=== PATIENT | male | born 1955 | race Caucasian/White ===

== ENCOUNTER 2018-12-04 12:08 | Emergency (ER) | payer OTHER ==
[2018-12-04 12:36] VITALS: PULSE 55; RESP 18
[2018-12-04] MEDS ORDERED: Acetaminophen-Codeine 300-30mg TAB PO STA (13:01)
[2018-12-04] MEDS ORDERED: LIDOCAINE 5% PATCH TOPICAL STA (13:01)
[2018-12-04] MEDS ORDERED: DIAZEPAM 5 MG/ML 2 ML INJ IM STA (13:02)
--- NOTE | 2018-12-04 13:16 | ED ---
Back Pain HPI - General Chief Complaint: Back Pain/Injury Stated Complaint: L5-S1 back pain Time Seen by Provider: 12/04/18 12:38 Source: patient Limitations: no limitations - History of Present Illness Initial Comments: Patient is a 62-year-old male with history of chronic low back pain is presenting to emergency Department with a chief complaint of back pain. Patient reports his initial symptoms started about 25 years ago after an injury. Patient reports a sense he experiences multiple acute exacerbations of the back pain per year. Patient reports his back "goes out" and he develops a localized pain in the lumbar sacral region. Patient reports the pain is exacerbated with ambulation alleviated when laying supine. Patient reports previous MRIs which determined a herniated disc at L5 and S1. Patient denies taking any pain medication at home. Patient denies numbness and tingling radiating down lower extremities. Patient denies any saddle paresthesia, urinary or bowel incontinence. Patient denies any abdominal pain. - Related Data Home Medications Medication Instructions Recorded Confirmed Ergocalciferol [Vitamin D2] 50,000 unit PO RACHEL 12/04/18 12/04/18 [employer]-3 Fatty Acids/Fish Oil [Fish 1 cap PO DAILY 12/04/18 12/04/18 Oil 1,000 mg Softgel] clonazePAM [KlonoPIN] 2 mg PO TID 12/04/18 12/04/18 Previous Rx's Medication Instructions Recorded Cyclobenzaprine [Flexeril] 5 mg PO TID PRN #15 tablet 12/04/18 Lidocaine [Lidoderm 5% Patch] 1 patch TRANSDERM DAILY #7 patch 12/04/18 Allergies Allergy/AdvReac Type Severity Reaction Status Date / Time Penicillins Allergy Unknown Verified 12/04/18 12:51 Iodine and Iodide Containing AdvReac KIDNEY Verified 12/04/18 12:51 Produc ISSUES Review of Systems ROS Statement: Those systems with pertinent positive or pertinent negative responses have been documented in the HPI. ROS Other: All systems not noted in ROS Statement are negative. Past Medical History Past Medical History: Prostate Disorder Additional Past Medical History / Comment(s): chronic back pain, diverticulitis, sepsis History of Any Multi-Drug Resistant Organisms: None Reported Past Surgical History: Appendectomy Additional Past Surgical History / Comment(s): colostomy and reversal, stage 3 Kidney disease, anemia Past Psychological History: Panic Disorder Smoking Status: Former smoker Past Alcohol Use History: None Reported Past Drug Use History: Marijuana General Exam Limitations: no limitations General appearance: alert, in no apparent distress Head exam: Present: atraumatic, normocephalic, normal inspection Eye exam: Present: normal appearance, PERRL, EOMI Pupils: Present: normal accommodation ENT exam: Present: normal exam, normal oropharynx, mucous membranes moist, TM's normal bilaterally, normal external ear exam Neck exam: Present: normal inspection, full ROM Respiratory exam: Present: normal lung sounds bilaterally Cardiovascular Exam: Present: regular rate, normal rhythm, normal heart sounds GI/Abdominal exam: Present: soft, normal bowel sounds Extremities exam: Present: normal inspection, full ROM, normal capillary refill, other. Absent: tenderness Back exam: Present: normal inspection, tenderness (Lumbosacral tenderness on palpation), muscle spasm, vertebral tenderness (Lumbosacral). Absent: full ROM (Limited range of motion due to pain), CVA tenderness (R), CVA tenderness (L), paraspinal tenderness, rash noted Neurological exam: Present: alert, oriented X3 Psychiatric exam: Present: normal affect, normal mood Skin exam: Present: warm, intact, normal color Course Vital Signs 12/04/18 12:29 Temperature 97.9 F Pulse Rate 55 L Respiratory 18 Rate Blood Pressure 136/82 O2 Sat by Pulse 97 Oximetry Medical Decision Making - Medical Decision Making Patient is 62-year-old male with history of chronic low back pain and herniated disks is presenting to emergency Department with chief complaint of low back pain. Based on physical examination the patient does not have sciatica-type symptoms. Pain is localized only to the lumbar sacral region. No red flags. No cauda equina signs. Patient was given a Tylenol 3, Lidoderm patch and 3 mg of Valium. On reevaluation patient reports he feels much better and is able to ambulate with little bit of discomfort. Patient will be discharged with a Tylenol 3 starter pack and a prescription for a lidocaine patch and Flexeril. Patient advised not to take the Tylenol 3 and Flexeril the same time. Patient advised about the possible side effects of both medications. Patient advised to alternate Tylenol and ibuprofen for pain control. Patient advised to keep the lidocaine patch on for 12 hours the remove for 12 hours. Patient advised to follow-up with orthopedics if symptoms not improved. Strict return parameters were thoroughly discussed the patient is understanding and agreeable. Case discussed with physician. Disposition Clinical Impression: Mechanical back pain Disposition: HOME SELF-CARE Condition: Stable Instructions (If sedation given, give patient instructions): Acute Low Back Pain (ED) Additional Instructions: Please take prescribed medication as directed. Please do not take Flexeril and Tylenol 3 at the same time. Please do not drive or operative heavy machinery when taking any medication. Please return to emergency department symptoms worsen. Please follow up with orthopedic if symptoms not improved. Prescriptions: Cyclobenzaprine [Flexeril] 5 mg PO TID PRN #15 tablet PRN Reason: Muscle Spasm Lidocaine [Lidoderm 5% Patch] 1 patch TRANSDERM DAILY #7 patch Is patient prescribed a controlled substance at d/c from ED?: No Referrals: Chris Abreu Jr, DO [Primary Care Provider] - 1-2 days Sherwin Echols DO [Doctor of Osteopathic Medicine] - 1-2 days Time of Disposition: 14:20
[2018-12-04] MEDS ORDERED: ACET/COD 300 MG/30 MG STARTER PACK 6 TAB BTL PO STA (14:07)
[2018-12-04 14:32] VITALS: BP 156/96; TEMP 98.3
== END 2018-12-04 14:32 | disposition home or self-care (01) ==
LOC: EC 12:08
DX: M62.830 Muscle spasm of back (principal); F41.0 Panic disorder [episodic paroxysmal anxiety]; Z87.891 Personal history of nicotine dependence; Z88.0 Allergy status to penicillin; Z91.048 Other nonmedicinal substance allergy status; Z79.899 Other long term (current) drug therapy; Z87.828 Personal history of other (healed) physical injury and trauma
CPT/HCPCS: 99283; 96372; J3360

== ENCOUNTER → 2018-12-25 | Outpatient (CLI) | payer OTHER ==
[2018-12-26 09:08] VITALS: BMI 20.8
== END ==
LOC: DBWHC3 12:40
PROVIDERS: ATTEND Family Medicine
DX: N18.2 Chronic kidney disease, stage 2 (mild) (principal)
CPT/HCPCS: 97802

== ENCOUNTER 2019-01-11 18:07 | Emergency (ER) | payer OTHER ==
[2019-01-11] MEDS ORDERED: diphenhydrAMINE 50 MG/ML 1 ML VIAL IVP STA (18:30)
--- NOTE | 2019-01-11 18:33 | ED ---
General Adult HPI - General Chief complaint: Seizure Stated complaint: seizure Time Seen by Provider: 01/11/19 18:17 Source: patient Mode of arrival: ambulatory Limitations: no limitations - History of Present Illness Initial comments: Patient presents to the ED complaining of having bilateral arm numbness and bilateral upper extremity and facial muscle spasms. Patient states that his symptoms began with right arm numbness and spasms just prior to coming to the ED this evening, and he states that these symptoms then spread to his left arm and face. Patient admits to having a history of anxiety, and he states that he is currently on antianxiety medication. Patient denies trauma or injury, fever or chills, headache, visual changes, speech difficulty, dizziness, syncope, neck/back pain, chest pain, dyspnea, cough or cold symptoms, palpitations, syncope, nausea/vomiting/diarrhea, abdominal pain, urinary symptoms, or any other symptoms or complaints. Patient denies EtOH, medication or drug abuse. - Related Data Home Medications Medication Instructions Recorded Confirmed Ergocalciferol [Vitamin D2] 50,000 unit PO RACHEL 12/04/18 01/11/19 [employer]-3 Fatty Acids/Fish Oil [Fish 1 cap PO DAILY 12/04/18 01/11/19 Oil 1,000 mg Softgel] Calcitriol [Rocaltrol] 0.25 mcg PO MOWEFR 01/11/19 01/11/19 Iron/B-12 1 tab PO DAILY 01/11/19 01/11/19 Allergies Allergy/AdvReac Type Severity Reaction Status Date / Time Penicillins Allergy Unknown Verified 01/11/19 20:44 Iodine and Iodide Containing AdvReac KIDNEY Verified 01/11/19 20:44 Produc ISSUES Review of Systems ROS Statement: Those systems with pertinent positive or pertinent negative responses have been documented in the HPI. ROS Other: All systems not noted in ROS Statement are negative. Past Medical History Past Medical History: Prostate Disorder Additional Past Medical History / Comment(s): chronic back pain, diverticulitis, sepsis History of Any Multi-Drug Resistant Organisms: None Reported Past Surgical History: Appendectomy Additional Past Surgical History / Comment(s): colostomy and reversal, stage 3 Kidney disease, anemia Past Psychological History: Anxiety, Panic Disorder Smoking Status: Former smoker Past Alcohol Use History: None Reported Past Drug Use History: Marijuana General Exam Limitations: no limitations General appearance: alert, anxious, other (Patient appears to be having generalized muscle spasms) Head exam: Present: atraumatic, normocephalic Eye exam: Present: normal appearance, PERRL, EOMI ENT exam: Present: mucous membranes moist Neck exam: Absent: tenderness, meningismus Respiratory exam: Present: normal lung sounds bilaterally. Absent: respiratory distress, wheezes, rales, rhonchi, stridor Cardiovascular Exam: Present: regular rate, normal rhythm, normal heart sounds, other (Normal radial pulses bilaterally) GI/Abdominal exam: Present: soft. Absent: distended, tenderness, guarding Neurological exam: Present: alert, oriented X3, CN II-XII intact. Absent: motor sensory deficit Psychiatric exam: Present: other (Patient is very anxious in appearance) Skin exam: Present: warm, dry, intact, normal color Course Vital Signs 01/11/19 01/11/19 01/11/19 18:09 19:05 19:26 Temperature 99.2 F Pulse Rate 71 61 58 L Respiratory 18 18 17 Rate Blood Pressure 136/104 137/113 140/100 O2 Sat by Pulse 98 97 97 Oximetry 01/11/19 01/11/19 21:28 21:41 Temperature 98.0 F Pulse Rate 65 Respiratory 18 Rate Blood Pressure 139/92 O2 Sat by Pulse 98 Oximetry EKG Findings - EKG Comments: EKG Findings:: Normal sinus rhythm, ventricular rate of 67 bpm, leftward axis, incomplete right bundle branch block, normal MD and QRS intervals, normal QT interval, no ST or T-wave abnormality Medical Decision Making - Medical Decision Making Patient's symptoms completely resolved with a single dose of IV Benadryl in the ED. Patient states that he now feels much better. Patient is no longer experiencing any paresthesias, and he is no longer exhibiting any muscle spasms. Patient's labs, EKG and noncontrast head CT are fairly unremarkable. I suspect that the patient's symptoms were likely secondary to either anxiety reaction or dystonic reaction. Patient is aware of his test results, and he feels comfortable going home at this time. Patient was instructed to, and agrees to, follow up closely with his PCP. Return and follow-up instructions were clearly explained to the patient. Patient feels comfortable with this plan. - Lab Data Result diagrams: 01/11/19 19:05 01/11/19 19:05 Lab Results 01/11/19 01/11/19 01/11/19 Range/Units 19:05 19:05 19:05 WBC 10.2 (3.8-10.6) k/uL RBC 4.51 (4.30-5.90) m/uL Hgb 13.8 (13.0-17.5) gm/dL Hct 41.9 (39.0-53.0) % MCV 92.9 (80.0-100.0) fL MCH 30.6 (25.0-35.0) pg MCHC 32.9 (31.0-37.0) g/dL RDW 13.3 (11.5-15.5) % Plt Count 165 (150-450) k/uL Neutrophils % 78 % Lymphocytes % 11 % Monocytes % 6 % Eosinophils % 1 % Basophils % 1 % Neutrophils # 8.0 H (1.3-7.7) k/uL Lymphocytes # 1.1 (1.0-4.8) k/uL Monocytes # 0.7 (0-1.0) k/uL Eosinophils # 0.1 (0-0.7) k/uL Basophils # 0.1 (0-0.2) k/uL Sodium 140 (137-145) mmol/L Potassium 4.3 (3.5-5.1) mmol/L Chloride 105 (98-107) mmol/L Carbon Dioxide 25 (22-30) mmol/L Anion Gap 10 mmol/L BUN 27 H (9-20) mg/dL Creatinine 1.35 H (0.66-1.25) mg/dL Est GFR (CKD-EPI)AfAm 64 (>60 ml/min/1.73 sqM) Est GFR (CKD-EPI)NonAf 55 (>60 ml/min/1.73 sqM) Glucose 88 (74-99) mg/dL Calcium 9.5 (8.4-10.2) mg/dL Total Bilirubin 2.0 H (0.2-1.3) mg/dL AST 20 (17-59) U/L ALT 19 L (21-72) U/L Alkaline Phosphatase 75 (38-126) U/L Creatine Kinase 134 (55-170) U/L Total Protein 6.7 (6.3-8.2) g/dL Albumin 4.2 (3.5-5.0) g/dL Prolactin 4.6 (2.1-17.7) ng/mL Urine Opiates Screen (NotDetected) Ur Oxycodone Screen (NotDetected) Urine Methadone Screen (NotDetected) Ur Propoxyphene Screen (NotDetected) Ur Barbiturates Screen (NotDetected) U Tricyclic Antidepress (NotDetected) Ur Phencyclidine Scrn (NotDetected) Ur Amphetamines Screen (NotDetected) U Methamphetamines Scrn (NotDetected) U Benzodiazepines Scrn (NotDetected) Urine Cocaine Screen (NotDetected) U Marijuana (THC) Screen (NotDetected) Serum Alcohol <10 mg/dL 01/11/19 Range/Units 21:00 WBC (3.8-10.6) k/uL RBC (4.30-5.90) m/uL Hgb (13.0-17.5) gm/dL Hct (39.0-53.0) % MCV (80.0-100.0) fL MCH (25.0-35.0) pg MCHC (31.0-37.0) g/dL RDW (11.5-15.5) % Plt Count (150-450) k/uL Neutrophils % % Lymphocytes % % Monocytes % % Eosinophils % % Basophils % % Neutrophils # (1.3-7.7) k/uL Lymphocytes # (1.0-4.8) k/uL Monocytes # (0-1.0) k/uL Eosinophils # (0-0.7) k/uL Basophils # (0-0.2) k/uL Sodium (137-145) mmol/L Potassium (3.5-5.1) mmol/L Chloride (98-107) mmol/L Carbon Dioxide (22-30) mmol/L Anion Gap mmol/L BUN (9-20) mg/dL Creatinine (0.66-1.25) mg/dL Est GFR (CKD-EPI)AfAm (>60 ml/min/1.73 sqM) Est GFR (CKD-EPI)NonAf (>60 ml/min/1.73 sqM) Glucose (74-99) mg/dL Calcium (8.4-10.2) mg/dL Total Bilirubin (0.2-1.3) mg/dL AST (17-59) U/L ALT (21-72) U/L Alkaline Phosphatase (38-126) U/L Creatine Kinase (55-170) U/L Total Protein (6.3-8.2) g/dL Albumin (3.5-5.0) g/dL Prolactin (2.1-17.7) ng/mL Urine Opiates Screen Not Detected (NotDetected) Ur Oxycodone Screen Not Detected (NotDetected) Urine Methadone Screen Not Detected (NotDetected) Ur Propoxyphene Screen Not Detected (NotDetected) Ur Barbiturates Screen Not Detected (NotDetected) U Tricyclic Antidepress Not Detected (NotDetected) Ur Phencyclidine Scrn Not Detected (NotDetected) Ur Amphetamines Screen Not Detected (NotDetected) U Methamphetamines Scrn Not Detected (NotDetected) U Benzodiazepines Scrn Not Detected (NotDetected) Urine Cocaine Screen Not Detected (NotDetected) U Marijuana (THC) Screen Detected H (NotDetected) Serum Alcohol mg/dL - Radiology Data Radiology results: report reviewed (Noncontrast CT head is negative) Disposition Clinical Impression: Paresthesia, Muscle spasm Narrative: Suspected anxiety reaction versus dystonic reaction Disposition: HOME SELF-CARE Condition: Stable Instructions (If sedation given, give patient instructions): Mood Disorders (ED), Tremors (ED) Additional Instructions: Return to the ER immediately should you develop any significant pain, a fever, new or worsening numbness or weakness, shortness of breath, feeling dizzy or faint, or new or worsening symptoms. Is patient prescribed a controlled substance at d/c from ED?: No Referrals: Chris Abreu Jr, DO [Primary Care Provider] - 1-2 days Time of Disposition: 21:31
--- NOTE | 2019-01-11 19:07 | CT ---
EXAMINATION TYPE: CT brain wo con DATE OF EXAM: 01/11/2019 COMPARISON: None HISTORY: seizure CT DLP: 1111.4 mGycm Automated exposure control for dose reduction was used. FINDINGS: Ventricles have normal size. There is no mass effect nor midline shift. There is no sign of intracran ial hemorrhage. There is mucosal thickening right frontal sinus. Calvarium is intact. IMPRESSION: NEGATIVE CT SCAN OF THE BRAIN. RIGHT FRONTAL SINUSITIS.
[2019-01-11 19:31] LABS: Basophils # (A) 0.1 k/uL (0-0.2); Basophils % (A) 1 %; Eosinophils # (A) 0.1 k/uL (0-0.7); Eosinophils % (A) 1 %; HCT 41.9 % (39.0-53.0); HGB 13.8 gm/dL (13.0-17.5); Lymphocytes # (A) 1.1 k/uL (1.0-4.8); Lymphocytes % (A) 11 %; MCH 30.6 pg (25.0-35.0); MCHC 32.9 g/dL (31.0-37.0); MCV 92.9 fL (80.0-100.0); Mean Platelet Volume 7.7; Monocytes # (A) 0.7 k/uL (0-1.0); Monocytes % (A) 6 %; Neutrophils % (A) 78 %; Platelet Count 165 k/uL (150-450); RBC 4.51 m/uL (4.30-5.90); RDW 13.3 % (11.5-15.5); WBC 10.2 k/uL (3.8-10.6)
[2019-01-11 19:40] LABS: ALT 19 U/L (21-72); AST 20 U/L (17-59); African American GFR (CKD) 64 (>60 ml/min/1.73 sqM); Albumin 4.2 g/dL (3.5-5.0); Alcohol <10 mg/dL; Alkaline Phosphatase 75 U/L (38-126); Anion Gap 10 mmol/L; Blood Urea Nitrogen 27 mg/dL (9-20); Calcium 9.5 mg/dL (8.4-10.2); Carbon Dioxide 25 mmol/L (22-30); Chloride 105 mmol/L (98-107); Creatine Kinase 134 U/L (55-170); Glucose 88 mg/dL (74-99); Non-African American GFR(CKD) 55 (>60 ml/min/1.73 sqM); Potassium 4.3 mmol/L (3.5-5.1); Sodium 140 mmol/L (137-145); Total Protein 6.7 g/dL (6.3-8.2)
[2019-01-11 21:26] LABS: Amphetamine Screen,Urine Not Detected (NotDetected); Barbiturate Screen,Urine Not Detected (NotDetected); Benzodiazepines Screen,Urine Not Detected (NotDetected); Cocaine Screen,Urine Not Detected (NotDetected); Methadone Screen, Urine Not Detected (NotDetected); Opiate Screen,Urine Not Detected (NotDetected); Oxycodone Screen, Urine Not Detected (NotDetected); Phencyclidine Screen,Urine Not Detected (NotDetected); Tricyclic Antidepressant,Urine Not Detected (NotDetected); Urn Cannabinoid Scrn Detected (NotDetected)
[2019-01-11 21:29] VITALS: BP 139/92; PULSE 65; RESP 18
[2019-01-11 21:42] VITALS: TEMP 98
== END 2019-01-11 21:41 | disposition home or self-care (01) ==
LOC: EC 18:07
DX: M62.838 Other muscle spasm (principal); R20.2 Paresthesia of skin; F41.9 Anxiety disorder, unspecified; Z79.899 Other long term (current) drug therapy; Z88.0 Allergy status to penicillin; Z88.8 Allergy status to other drugs, medicaments and biological substances; Z87.891 Personal history of nicotine dependence
CPT/HCPCS: 36415; 93005; 80053; 82550; 85025; 84146; 80306; 70450; 99285; 96374; G0480; J1200; 80320

== ENCOUNTER → 2019-02-21 | Outpatient (CLI) | payer OTHER ==
[2019-02-22 02:12] LABS: C Reactive Protein <0.4 mg/dL (0.0-0.8)
== END | disposition home or self-care (01) ==
LOC: LABWHC1 15:43
PROVIDERS: ATTEND Internal Medicine
DX: R19.7 Diarrhea, unspecified (principal)
CPT/HCPCS: 36415; 83630; 83993; 84439; 84443; 85652; 86140; 87045; 87046; 87328; 87329

== ENCOUNTER 2019-03-12 18:17 | Emergency (ER) | payer OTHER ==
[2019-03-12 18:27] VITALS: BP 136/73; PULSE 60; RESP 20; TEMP 98.2
[2019-03-12] MEDS ORDERED: HYDROcodone/APAP 5-325MG 1 EACH TAB PO STA (18:35)
--- NOTE | 2019-03-12 18:43 | ED ---
General Adult HPI - General Chief complaint: Extremity Injury, Lower Stated complaint: POSS LEFT FOOT Fx Time Seen by Provider: 03/12/19 18:27 Source: patient, RN notes reviewed, old records reviewed Mode of arrival: ambulatory Limitations: no limitations - History of Present Illness Initial comments: 63-year-old male patient presents to ED chief complaint of left foot pain. Patient reports that earlier today approximately noon he was moving a large metal table when it fell landing on the dorsal aspect of his left foot. Patient reports that immediately after the injury he put an icepack on the foot. Patient currently has been ambulatory since. Approximate one hour ago the pain got worse. Patient reports that he feels as if there is some sort of popping going on his foot. Patient is ambulatory with antalgic gait. Denies any other complaints at this time. Systemic: Pt denies fatigue, fever/chills, rash. Pt denies weakness, night sweats, weight loss. Neuro: Pt denies headache, visual disturbances, syncope or pre-syncope. HEENT: Pt denies ocular discharge or irritation, otalgia, rhinorrhea, pharyngitis or notable lymphadenopathy. Cardiopulmonary: Pt denies chest pain, SOB, heart palpitations, dyspnea on exertion. Abdominal/GI: Pt denies abdominal pain, n/v/d. : Pt denies dysuria, burning w/ urination, frequency/urgency. Denies new onset urinary or bowel incontinence. MSK: Pt denies loss of strength or function in extremities. Neuro: Pt denies new onset weakness, paresthesias. - Related Data Home Medications Medication Instructions Recorded Confirmed Ergocalciferol [Vitamin D2] 50,000 unit PO RACHEL 12/04/18 01/11/19 [employer]-3 Fatty Acids/Fish Oil [Fish 1 cap PO DAILY 12/04/18 01/11/19 Oil 1,000 mg Softgel] Calcitriol [Rocaltrol] 0.25 mcg PO MOWEFR 01/11/19 01/11/19 Iron/B-12 1 tab PO DAILY 01/11/19 01/11/19 Allergies Allergy/AdvReac Type Severity Reaction Status Date / Time Penicillins Allergy Unknown Verified 03/12/19 18:26 Iodine and Iodide Containing AdvReac KIDNEY Verified 03/12/19 18:26 Produc ISSUES Review of Systems ROS Statement: Those systems with pertinent positive or pertinent negative responses have been documented in the HPI. ROS Other: All systems not noted in ROS Statement are negative. Past Medical History Past Medical History: Prostate Disorder Additional Past Medical History / Comment(s): chronic back pain, diverticulitis, sepsis History of Any Multi-Drug Resistant Organisms: None Reported Past Surgical History: Appendectomy Additional Past Surgical History / Comment(s): colostomy and reversal, stage 3 Kidney disease, anemia Past Psychological History: Anxiety, Panic Disorder Smoking Status: Former smoker Past Alcohol Use History: None Reported Past Drug Use History: Marijuana General Exam - General Exam Comments Initial Comments: Constitutional: NAD, AOX3, Pt has pleasant affect. HEENT: NC/AT, trachea midline, neck supple, no lymphadenopathy. Posterior pharynx non erythematous, without exudates. External ears appear normal, without discharge. Mucous membranes moist. Eyes PERRLA, EOM intact. There is no scleral icterus. No pallor noted. Cardiopulmonary: RRR, no murmurs, rubs or gallops, no JVD noted. Lungs CTAB in anterior and posterior hollins. No peripheral edema. Abdominal exam: Abdomen soft and non-distended. Abdomen non-tender to palpation in all 4 quadrants. Bowel sounds active in LLQ. No hepatosplenomegaly. No ecchymosis Neuro: CN II-XII grossly intact. No nuchal rigidity. No raccon eyes, no alvarado sign, no hemotympanum. No cervical spinal tenderness. MSK: Dorsal aspect of left foot moderately tender to palpation. Small amount of erythema. No ecchymoses. Neurovascularly intact. Compartments are soft. Able to wiggle toes. No posterior calf tenderness bilaterally, homans sign negative bilaterally. Posterior tibialis and radial pulse +2 bilaterally. Sensation intact in upper and lower extremities. Full active ROM in upper and lower extremities, 5/5 stregnth. Limitations: no limitations Course Vital Signs 03/12/19 18:24 Temperature 98.2 F Pulse Rate 60 Respiratory 20 Rate Blood Pressure 136/73 O2 Sat by Pulse 97 Oximetry Medical Decision Making - Medical Decision Making 62-year-old male patient presents ED chief complaint of left foot injury. Reports that a heavy table landed on the dorsal aspect of left foot. Patient vital signs are stable, afebrile. Physical exam displayed dorsal aspect of warp tying machine tender to palpation. Neurovascularly intact. Able to wiggle toes. Small amount of erythema, no ecchymoses. Plain film was negative. Patient was discharged with a postop walking shoe. We'll follow up with primary care provider and will follow up with orthopedic consult symptoms persist. Patient administered analgesia for pain, reports that he is not driving home. Case discussed with Dr. Soto. Disposition Clinical Impression: Foot pain Disposition: HOME SELF-CARE Condition: Stable Instructions (If sedation given, give patient instructions): Foot Sprain (ED) Additional Instructions: Follow-up with primary care provider tomorrow. Limit weightbearing on left foot only as tolerated. Use crutches as needed. Wear postop walking shoe. Follow- up with primary care provider tomorrow. Follow up with orthopedic consult symptoms persist. Return to ER if condition worsens in any way. Is patient prescribed a controlled substance at d/c from ED?: No Referrals: Chris Abreu Jr, DO [Primary Care Provider] - 1-2 days Miguel Angel Mendieta MD [STAFF PHYSICIAN] - 1-2 days
--- NOTE | 2019-03-12 18:56 | XR ---
EXAMINATION TYPE: XR foot complete LT DATE OF EXAM: 03/12/2019 COMPARISON: NONE HISTORY: Foot pain TECHNIQUE: 3 views FINDINGS: Metatarsals are intact. I see no fracture nor dislocation. There are mild plantar and Achil les calcaneal spurs. There are no erosions. IMPRESSION: Minimal calcaneal spurring. No fracture seen.
== END 2019-03-12 19:52 | disposition home or self-care (01) ==
LOC: EC 18:17
DX: M79.672 Pain in left foot (principal); L53.9 Erythematous condition, unspecified; Z87.891 Personal history of nicotine dependence; Z88.0 Allergy status to penicillin; Z91.048 Other nonmedicinal substance allergy status; W20.8XXA Other cause of strike by thrown, projected or falling object, initial encounter; Y93.89 Activity, other specified; Y92.89 Other specified places as the place of occurrence of the external cause
CPT/HCPCS: 99284

== ENCOUNTER 2019-04-04 21:44 | Emergency (ER) | payer OTHER ==
[2019-04-04] MEDS ORDERED: LORazepam 2 MG/ML INJ IM STA ×2 (22:01→22:04)
--- NOTE | 2019-04-04 22:10 | ED ---
Anxiety HPI - General Chief Complaint: Anxiety Stated Complaint: Paniac attack Source: patient Mode of arrival: ambulatory - History of Present Illness Initial Comments: Charles is a 63-year-old gentleman with a history of panic attacks who presents the ER today apparently having a panic attack. Patient is breathing rapidly moaning and near tears stating that he can get himself under control. After receiving Ativan patient is awake alert completely appropriate. Patient states that he suffers from anxiety for a long period time he was previously placed on Zoloft but states it made him feel worse so he quit taking it and advised his physician that he was going to refuse to take any medications and will manage his anxiety and depression himself. Patient states he's been under a lot of stress recently due to his girlfriend going through some health problems, and the holiday. Patient denies any suicidal or homicidal ideation. Denies any thoughts of hurting himself or others. - Related Data Home Medications: Home Medications Medication Instructions Recorded Confirmed Ergocalciferol [Vitamin D2] 50,000 unit PO RACHEL 12/04/18 01/11/19 [place]-3 Fatty Acids/Fish Oil [Fish 1 cap PO DAILY 12/04/18 01/11/19 Oil 1,000 mg Softgel] Calcitriol [Rocaltrol] 0.25 mcg PO MOWEFR 01/11/19 01/11/19 Iron/B-12 1 tab PO DAILY 01/11/19 01/11/19 Allergies/Adverse Reactions: Allergies Allergy/AdvReac Type Severity Reaction Status Date / Time Penicillins Allergy Unknown Verified 04/04/19 21:57 Iodine and Iodide Containing AdvReac KIDNEY Verified 04/04/19 21:57 Produc ISSUES Review of Systems ROS Statement: Those systems with pertinent positive or pertinent negative responses have been documented in the HPI. ROS Other: All systems not noted in ROS Statement are negative. Past Medical History Past Medical History: Prostate Disorder Additional Past Medical History / Comment(s): chronic back pain, diverticulitis, sepsis History of Any Multi-Drug Resistant Organisms: None Reported Past Surgical History: Appendectomy Additional Past Surgical History / Comment(s): colostomy and reversal, stage 3 Kidney disease, anemia Past Psychological History: Anxiety, Depression, Panic Disorder Smoking Status: Former smoker Past Alcohol Use History: None Reported Past Drug Use History: Marijuana General Exam - General Exam Comments Initial Comments: Physical Exam GENERAL: Appears emotionally distressed with no apparent physical injuries HENT: Normocephalic, Atraumatic. EYES: PERRL, EOMI PULMONARY: Tachypnea, audibly moaning with each respiration which limits auscultation CARDIOVASCULAR: RRR Warm and well perfused extremities ABDOMEN: Non-distended SKIN: No rashes or bruising : Deferred NEUROLOGIC: Alert and oriented MUSCULOSKELETAL: Moving all extremities with no apparent injury PSYCHIATRIC: Anxious, tearful Course Vital Signs 04/04/19 21:54 Temperature 98.1 F Pulse Rate 68 Respiratory 26 H Rate Blood Pressure 101/59 O2 Sat by Pulse 94 L Oximetry Medical Decision Making - Medical Decision Making Patient was seen and evaluated upon arrival, patient is moaning out tachypneic very upset concern for acute anxiety attack, IM Ativan was ordered She was given Ativan, upon reevaluation he is awake alert and appropriate denies suicidal or homicidal ideation. Declines evaluation by psychiatric nurses. States that he has a counselor he follows with in that he has refused anxiolytic medications in the past. At this time patient's comfortable with plan for discharge home and continued outpatient follow-up Disposition Clinical Impression: Acute anxiety Disposition: HOME SELF-CARE Condition: Stable Additional Instructions: Follow-up with her primary care physician and counselor. I would recommend discussing with her primary care physician possibility of going back on a medication such as Zoloft for something for generalized anxiety. Return to the ER if you have any worsening symptoms develop any new or concerning symptoms or have any thoughts of harming herself or others. Is patient prescribed a controlled substance at d/c from ED?: No Referrals: Chris Abreu Jr, [Primary Care Provider] - 1-2 days
[2019-04-05 00:02] VITALS: BP 161/93; PULSE 57; RESP 14; TEMP 97.7
== END 2019-04-04 23:50 | disposition home or self-care (01) ==
LOC: EC 21:44
DX: F41.9 Anxiety disorder, unspecified (principal); Z88.0 Allergy status to penicillin; Z91.048 Other nonmedicinal substance allergy status; Z87.891 Personal history of nicotine dependence
CPT/HCPCS: 99283; 96372; J2060